=== PATIENT | female | born 1935 | race Caucasian/White ===

== ENCOUNTER 2018-04-23 20:05 | Emergency (ER) | END 2018-04-24 02:29 | disposition home or self-care (01) ==

== ENCOUNTER 2018-06-14 05:52 | Emergency (ER) | END 2018-06-14 09:22 | disposition home or self-care (01) ==

== ENCOUNTER 2018-12-25 08:56 | Emergency (ER) | payer MEDICARE, OTHER ==
[~2018-12-25] VITALS: Ht 167.6 cm; Wt 76.9 kg
[~2018-12-25 08:56] MED LIST: ASPI-1046 PO; CYCL1DRO BOTH EYES; ERGO500013 PO; FOLI-49 PO; GABA300C16 PO; HYDR-4011 PO; IBUP-1542 PO; LEVO112T2 PO; METO25TA4 PO; NITR-58 PO; OMEP20CA16 PO; ONDA4TAB8 PO; PHEN-537 PO; ROSU10TA55 PO; VALS80TA2 PO
[2018-12-25 09:05] VITALS: Ht 167.6 cm; Wt 76.9 kg
[2018-12-25] MEDS ORDERED: ACETAMINOPHEN 325 MG TAB PO STA (09:31)
[2018-12-25] MEDS ORDERED: SOD CHLORIDE 0.9% 500 ML IV STA (09:31)
[2018-12-25] MEDS ORDERED: METOCLOPRAMIDE 10 MG INJ IV STA (09:31)
[2018-12-25] MEDS ORDERED: LOSA50TA14 PO (10:40)
[2018-12-25] MEDS ORDERED: MECL-77 PO (10:40)
[2018-12-25] MEDS ORDERED: LEVO150T7 PO (10:40)
[2018-12-25] MEDS ORDERED: KETOROLAC 15 MG INJ IV STA (11:20)
[2018-12-25] MEDS ORDERED: MECLIZINE 12.5 MG TAB PO ONE (11:30)
--- NOTE | 2018-12-25 13:03 | ERD ---
ER Documentation Chief Complaint Chief Complaint Complains of headache, dizziness with nausea and vomiting x 2 days HPI This is an 83-year-old female with a past medical history of hypertension, hyperlipidemia, hypothyroidism, previous episodes of vertigo who is presenting with 2 days of waxing and waning transient episodes of dizziness, feeling like the room is spinning around her with associated nausea and a few episodes of non bilious nonbloody vomiting. The patient also endorses a mild frontal throbbing headache. Her symptoms are worse with position and when she moves her head. She denies photophobia or phonophobia. She denies any double or blurry vision. She denies any focal deficits. She denies any weakness numbness or tingling to the face or extremities. She denies any coordination issues. She has been able to ambulate. The patient denies feeling sick recently. The patient denies fever or chills. The patient does not endorse neck or back pain. The patient denies lightheadedness. The patient has had no chest pain or trouble breathing. The patient denies nausea or vomiting. The patient denies abdominal pain. The patient denies changes to bowel movements or urination. ROS All systems reviewed and are negative except as per history of present illness. Medications Home Meds Active Scripts Meclizine Hcl* (Antivert*) 12.5 Mg Tab, 12.5 MG PO Q6H PRN for DIZZINESS, #20 TAB Prov:XI BOUCHER MD 12/25/18 Reported Medications Levothyroxine Sodium* (Levothyroxine Sodium*) 150 Mcg Tablet, 150 MCG PO BEFORE BREAKFAST, #30 TAB 12/25/18 Meclizine Hcl* (Meclizine Hcl*) 25 Mg Tablet, 25 MG PO Q8H PRN for DIZZINESS, TAB 12/25/18 Losartan Potassium* (Losartan Potassium*) 50 Mg Tablet, 50 MG PO DAILY, TAB 12/25/18 Folic Acid* (Folic Acid*) 1 Mg Tablet, 1 MG PO DAILY, TAB 04/23/18 Aspirin* (Aspirin* (EC)) 81 Mg Tablet.dr, 81 MG PO DAILY, TAB 04/23/18 Omeprazole* (Omeprazole*) 20 Mg Capsule.dr, 20 MG PO DAILY, CAP 05/22/14 Discontinued Reported Medications Cyclosporine (RESTASIS) 1 Each Droperette, 1 DROP BOTH EYES Q12, #1 BOX 6/27/18 Rosuvastatin Calcium* (Crestor*) 10 Mg Tablet, 10 MG PO QHS, #30 TAB 04/23/18 Metoprolol Tartrate* (Lopressor*) 25 Mg Tablet, 25 MG PO DAILY, #60 TAB 04/23/18 Ergocalciferol (Vitamin D2) (VITAMIN D2) 50,000 Unit Capsule, 23439 UNIT PO QMON, CAP 04/23/18 Gabapentin* (Gabapentin*) 300 Mg Capsule, 300 MG PO BID, #60 CAP 04/23/18 Levothyroxine Sodium* (Synthroid*) 112 Mcg Tablet, 112 MCG PO AC BREAKFAST, TAB 01/25/15 Valsartan* (Diovan*) 80 Mg Tablet, 80 MG PO DAILY, TAB 05/22/14 Discontinued Scripts Ondansetron Hcl* (Zofran*) 4 Mg Tablet, 4 MG PO Q6H for NAUSEA AND/OR VOMITING, #20 TAB Prov:XI BOUCHER MD 06/14/18 Phenazopyridine Hcl* (Pyridium*) 100 Mg Tab, 100 MG PO TID PRN for URINARY PAIN, #8 TAB Prov:XI BOUCHER MD 06/14/18 Nitrofurantoin Monohyd Macrocr* (Macrobid*) 100 Mg Capsr, 100 MG PO BID for 5 Days, CAP Prov:XI BOUCHER MD 06/14/18 Hydrocodone/Acetaminophen ([place] 5-325 Tablet) 1 Each Tablet, 1 TAB PO Q6H PRN for PAIN, #7 TAB Prov:AKHIL HEREDIA MD 04/24/18 Ibuprofen* (Motrin*) 600 Mg Tab, 600 MG PO Q6, #20 TAB With food or milk Prov:AKHIL HEREDIA MD 04/24/18 Allergies Allergies: Coded Allergies: Penicillins (Verified Allergy, Unknown, 12/25/18) Uncoded Allergies: CILLINS (Allergy, Unknown, 05/22/14) MUSHROOMS (Allergy, Unknown, 05/22/14) PMhx/Soc History of Surgery: Yes (CATARACT, Thyroid CA) Anesthesia Reaction: No Hx Neurological Disorder: No Hx Respiratory Disorders: Yes (PE in 2016) Hx Cardiac Disorders: Yes (HTN, HLD) Hx Psychiatric Problems: No Hx Miscellaneous Medical Probl: Yes (Patient's neurologic symptoms have been e valuated in the department and have stabilized. Patient is appropriate for outpatient management. No evidence of meningitis, intracranial bleed, seizure, stroke, or elevated intracranial pressure. Additionally, a HINTS exam was performed. The the patient had an abnormal Head Impulse test, with a quick saccade movement to catchup while maintaining a forward gaze. The patient also had a horizontal Nystagmus, indicative of an acute vestibular syndrome. Lastly, the patient's Test of Skew showed no vertical gaze corrections.The overall clinical picture does not suggest signs of a posterior stroke.) Hx Alcohol Use: No Hx Substance Use: No Hx Tobacco Use: No Smoking Status: Never smoker FmHx Family History: diabetes Physical Exam Vitals Vital Signs Date Temp Pulse Resp B/P (MAP) Pulse Ox O2 O2 Flow FiO2 Time Delivery Rate 12/25/18 78 18 158/97 98 Room Air 13:19 (117) 12/25/18 98.9 64 20 160/96 98 09:05 (117) Physical Exam Const: No apparent distress, well-developed, well-nourished Head: Normocephalic, Atraumatic Eyes: Normal Conjunctiva. Right-sided horizontal nystagmus. Otherwise, extraocular movements intact. Pupils equal, round and reactive to light. Abnormal head impulse test. No skew deviation on test of skew. ENT: Normal External Ears, Nose and Mouth. Neck: Full range of motion. No meningismus. Resp: Clear to auscultation bilaterally, No wheezes, rales or rhonchi Cardio: Regular rate and rhythm. No murmurs, rubs or gallops Abd: Soft, non tender, non distended. Normal bowel sounds Skin: No petechiae or rashes Back: No midline tenderness. No CVA tenderness Ext: No cyanosis, or edema Neur: Awake and alert, oriented 4. Cranial nerves intact. No facial droop. Normal strength, sensation and coordination. Psych: Normal Mood and Affect Result Diagram: 12/25/18 1003 12/25/18 1003 Results 24 hrs Laboratory Tests Test 12/25/18 10:03 12/25/18 10:08 White Blood Count 6.2 10^3/ul Red Blood Count 4.89 10^6/ul Hemoglobin 13.7 g/dl Hematocrit 43.1 % Mean Corpuscular Volume 88.1 fl Mean Corpuscular Hemoglobin 28.0 pg Mean Corpuscular Hemoglobin Concent 31.8 g/dl Red Cell Distribution Width 15.3 % Platelet Count 268 10^3/UL Mean Platelet Volume 10.6 fl Immature Granulocytes % 0.200 % Neutrophils % 62.6 % Lymphocytes % 25.6 % Monocytes % 8.1 % Eosinophils % 3.2 % Basophils % 0.3 % Nucleated Red Blood Cells % 0.0 /100WBC Immature Granulocytes # 0.010 10^3/ul Neutrophils # 3.9 10^3/ul Lymphocytes # 1.6 10^3/ul Monocytes # 0.5 10^3/ul Eosinophils # 0.2 10^3/ul Basophils # 0.0 10^3/ul Nucleated Red Blood Cells # 0.0 10^3/ul Prothrombin Time 11.5 Sec Prothrombin Time Ratio 0.9 INR International Normalized Ratio 0.83 Activated Partial Thromboplast Time 25.8 Sec Sodium Level 144 mmol/L Potassium Level 4.3 mmol/L Chloride Level 106 mmol/L Carbon Dioxide Level 27 mmol/L Anion Gap 11 Blood Urea Nitrogen 20 mg/dl Creatinine 0.70 mg/dl Est Glomerular Filtrat Rate mL/min mL/min Glucose Level 89 mg/dl Calcium Level 9.9 mg/dl Troponin I < 0.012 ng/ml Bedside Glucose 96 mg/dL Current Medications Medications Dose Sig/Iesha Start Time Status Last (Trade) Ordered Route PRN Stop Time Admin Dose Reason Admin Sodium 500 ml @ Q1H STAT 12/25/18 DC 12/25/18 Chloride 500 mls/hr IV 09:31 10:09 12/25/18 10:30 650 mg ONCE STAT 12/25/18 DC Acetaminophen PO 09:31 (Tylenol 12/25/18 09:33 Tab) 10 mg ONCE STAT 12/25/18 DC Metoclopramid IV 09:31 e HCl 12/25/18 09:33 (Reglan) Ketorolac 15 mg ONCE STAT 12/25/18 DC 12/25/18 Tromethamine IV 11:20 11:28 (Toradol) 12/25/18 11:21 Meclizine 25 mg ONCE ONCE 12/25/18 DC 12/25/18 HCl PO 11:30 11:28 (Antivert) 12/25/18 11:31 Procedures/[facility] The patient's presentation warrants further investigation. Previous medical records, if available, were reviewed. LABS The patient's laboratory testing was obtained and reviewed. No emergent treatment was required unless described below. CBC: No E/o of systemic infection or severe anemia or thrombocytopenia Chemistry: No E/o severe acidosis or alkalosis or renal failure or diabetic ketoacidosis PT/INR: No E/o significant coagulopathy Troponin: No E/o acute ischemia EKG EKG read by me: Rate/Rhythm: Sinus rhythm at 75 bpm. Intervals: Normal [place]: Left axis deviation Impression: No evidence of acute ischemia or arrhythmia IMAGING Imaging and Radiology interpretation reviewed. CT head IMPRESSION: 1. No acute intracranial hemorrhage, transcortical infarction or mass effect. 2. Mild intracranial atherosclerosis and chronic small vessel ischemic villanueva ges. 3. Mild generalized cerebral volume loss. 4. Partially empty sella turcica. 5. Punctate foci of calcification within the left parotid gland which may represent sialolithiasis or sequela of prior infection or inflammation. Electronically viewed and signed by Lorenzo Cardona MD, MD on 12/25/2018 10:02 TREATMENT/DISPOSITION The patient presents with dizziness, most consistent with vertigo. The patient has a reassuring physical exam. The patient is not clinically orthostatic. The patient has no signs of emergent or symptomatic anemia. The patient does not have any emergent electrolyte or metabolic emergencies. I have decrease suspicion for a thyroid emergency. The patient is not toxic appearing. I have decreased suspicion for an infectious etiology of symptoms. The patient's EKG and troponin are reassuring. I have low suspicion for acute coronary syndrome. I do not see evidence of any emergent cardiac arrhythmia, which includes but is not limited to heart block, Brugada syndrome or WPW. The patient has no heart murmurs or rales. There is no evidence of cardiomegaly on exam or chest xray. I have low suspicion for hypertrophic cardiomyopathy. I do not see evidence of CHF. The patient does not endorse any chest or pleuritic pain. The history is negative for bleeding or clotting disorders. The patient has not been involved in any recent prolonged trips or surgeries or h ospitalizations. The patient has no calf tenderness or swelling. I have decreased suspicion for PE as the etiology of symptoms. The patient also reports a mild headache. Differential diagnosis includes migraine, tension headache, cluster headache. The patient has no focal deficits. The neurologic exam is reassuring. She was ambulatory without issue. The patient CT of the head does not reveal any emergent findings. I have decreased suspicion for cerebral ischemia. There was no trauma or injury. There is no personal or family history of cerebral aneurysm. This is not the worst headache of the patient's life. It was not acutely severe. It is been progressive in nature. I have decreased suspicion for SAH or other ICH. I have low suspicion for temporal arteritis, cavernous venous thrombosis, subdural hematoma, epidural hematoma, meningitis. The patient was treated with IV fluids and meclizine to help with her vertiginous symptoms. She was also treated with Tylenol, Toradol and Reglan to help with her headache. Upon reevaluation of the patient, symptoms have improved. No emergent diagnoses were identified. At this time, I feel that the patient stable for discharge. The patient was instructed to follow-up with a primary care physician in 1-3 days. The patient will be given strict precautions with which to return to the emergency department. Prescriptions: Meclizine The patient's blood pressure was elevated at greater than 120/80 while in the emergency department. The patient was otherwise stable with no evidence of hypertensive urgency or emergency. The patient does not require admission for blood pressure control. I have discussed with the patient the risks of hypertension. I have instructed the patient to return to the ER for any new or worsening symptoms including chest pain, shortness of breath, headache, blurred vision, confusion, nausea, vomiting or LOC. I have advised the patient to follow up with the primary care physician for outpatient monitoring and treatment for hypertension in 1-3 days. Disclaimer: Inadvertent spelling and grammatical errors are likely due to EHR/dictation software use and do not reflect on the overall quality of patient care. Note that the electronic time recorded on this note does not necessarily reflect the actual time of the patient encounter. Departure Diagnosis: Primary Impression: Vertigo Additional Impressions: Dizziness Headache Headache type: unspecified Headache chronicity pattern: acute headache Intractability: not intractable Qualified Codes: R51 - Headache Nausea & vomiting Vomiting type: unspecified Vomiting Intractability: non-intractable Qualified Codes: R11.2 - Nausea with vomiting, unspecified Condition: Stable XI BOUCHER MD Dec 25, 2018 13:03
[2018-12-25] MEDS ORDERED: MECL12.574 PO (13:04)
[2018-12-25 13:19] VITALS: BP 158/97; PULSE 78; RESP 18
== END 2018-12-25 13:29 | disposition home or self-care (01) ==
LOC: E/R 08:56
DX: R42 Dizziness and giddiness (principal); R11.2 Nausea with vomiting, unspecified; R40.2142 Coma scale, eyes open, spontaneous, at arrival to emergency department; R40.2362 Coma scale, best motor response, obeys commands, at arrival to emergency department; R40.2252 Coma scale, best verbal response, oriented, at arrival to emergency department; I10 Essential (primary) hypertension; E03.9 Hypothyroidism, unspecified; Z85.850 Personal history of malignant neoplasm of thyroid; Z79.82 Long term (current) use of aspirin
CPT/HCPCS: 36415; 70450; 80048; 82962; 84484; 85025; 85610; 85730; 93005; 96374; 99285; J1885; J7040